=== PATIENT | male | born 1950 | race Caucasian/White ===

== ENCOUNTER → 2018-07-22 | Outpatient (CLI) | payer MEDICARE, OTHER ==
--- NOTE | 2018-07-22 15:49 | 2DMMODE ---
[place] [address] 2 D/M-MODE ECHOCARDIOGRAM Name: JOCYODALYS Felecia Room: [facility]#: [id number] Admission: 07/22/18 Attend Phys: Evelia Thompson Discharge: Date of : 46 Date of Service: 07/22/18 1549 Report #: [id number] THIS REPORT FOR: //name// APPROVED REPORT Study performed: 07/22/2018 13:54:45 EXAM: Comprehensive 2D, Doppler, and color-flow Echocardiogram Patient Location: Out-Patient Status: routine BSA: 1.74 HR: 70 bpm BP: 123/65 mmHg Rhythm: NSR Other Information Study Quality: Good Indications CAD Leg pain 2D Dimensions IVSd: 7.98 (7-11mm) LVOT Diam: 20.94 (18-24mm) LVDd: 49.95 mm PWd: 9.10 (7-11mm) Ascending Ao: 30.37 (22-36mm) LVDs: 40.26 (25-40mm) Aortic Root: 33.15 mm Volumes Left Atrial Volume (Systole) LA ESV Index: 30.40 mL/m2 Aortic Valve AoV Peak Rodo.: 1.02 m/s AO Peak Gr.: 4.15 mmHg LVOT Max P.04 mmHg AO Mean Gr.: 2.55 mmHg LVOT Mean P.97 mmHg LVOT Max V: 0.71 m/s AO V2 VTI: 22.91 cm LVOT Mean V: 0.45 m/s YUE (VTI): 2.47 cm2 LVOT V1 VTI: 16.42 cm AI Overton: 2.44 m/s2 AI PHT: 482.38 [place] [address] 2 D/M-MODE ECHOCARDIOGRAM Name: ODALYS SANDRA Room: [facility]#: [id number] Admission: 07/22/18 Attend Phys: Evelia Thompson Discharge: Date of : 46 Date of Service: 07/22/18 1549 Report #: [id number] E/A Ratio: 0.93 MV Decel. Time: 192.69 ms MV E Max Rodo.: 0.65 m/s MV PHT: 55.88 ms MVA (PHT): 3.94 cm2 TDI E/Lateral E': 7.22 E/Medial E': 6.50 Medial E' Rodo.: 0.10 m/s Lateral E' Rodo.: 0.09 m/s Pulmonary Valve PV Peak Rood.: 0.94 m/s PV Peak Gr.: 3.52 mmHg Left Ventricle The left ventricle is normal size. There is global hypokinesis of the left ventricle. There is normal left ventricular wall thickness. Left ventricular systolic function is mildly decreased. LVEF is 35-40%. The left ventricular diastolic function is normal. Right Ventricle The right ventricle is normal size. The right ventricular systolic function is normal. Atria Left atrium is mildly dilated. The right atrium size is normal. Aortic Valve Mild aortic valve sclerosis. mild to Moderate aortic regurgitation. There is no aortic valvular stenosis. Mitral Valve The mitral valve is normal in structure. mild mitral regurgitation. No evidence of mitral valve stenosis. Tricuspid Valve The tricuspid valve is normal in structure. Unable to assess PA pressure. Trace tricuspid regurgitation. Pulmonic Valve The pulmonary valve is normal in structure. Trace pulmonic regurgitation. Great Vessels The aortic root is normal in size. IVC [place] [address] 2 D/M-MODE ECHOCARDIOGRAM Name: ODALYS SANDRA Room: [facility]#: [id number] Admission: 07/22/18 Attend Phys: Evelia Thompson Discharge: Date of : 46 Date of Service: 07/22/18 1549 Report #: [id number] collapses >50% with inspiration. Pericardium There is no pericardial effusion. <Conclusion> LVEF is 35-40%. There is global hypokinesis of the left ventricle. Left atrium is mildly dilated. There is no aortic valvular stenosis Trace tricuspid regurgitation. mild to moderate aortic regurgitation. mild mitral regurgitation. <ELECTRONICALLY SIGNED> By: Patrick Pablo MD, FACC 07/22/18 1549 1549 1549 Patrick Pablo MD, FAC /INF
== END ==
LOC: M.ULTRA 07-02 08:01
DX: I08.0 Rheumatic disorders of both mitral and aortic valves (principal); G45.9 Transient cerebral ischemic attack, unspecified; M79.604 Pain in right leg; I73.9 Peripheral vascular disease, unspecified; Z88.8 Allergy status to other drugs, medicaments and biological substances

== ENCOUNTER 2018-08-02 11:48 | Emergency (ER) | payer MEDICARE, OTHER ==
[~2018-08-02] VITALS: Ht 170.2 cm; Wt 63.5 kg
[2018-08-02 11:55] VITALS: BP 138/80
[2018-08-02] MEDS ORDERED: DOXYCYCLINE 10100 MG PO ×2 (12:41)
== END 2018-08-02 12:48 | disposition home or self-care (01) ==
LOC: M.ERS 11:48
DX: S81.832A Puncture wound without foreign body, left lower leg, initial encounter (principal); E11.9 Type 2 diabetes mellitus without complications; F17.210 Nicotine dependence, cigarettes, uncomplicated; W57.XXXA Bitten or stung by nonvenomous insect and other nonvenomous arthropods, initial encounter; Y93.89 Activity, other specified; Y92.89 Other specified places as the place of occurrence of the external cause; Y99.8 Other external cause status

== ENCOUNTER → 2019-10-07 | Outpatient (CLI) | payer MEDICARE, OTHER ==
[~2019-10-07] MED LIST: DOXYCYCLINE 10100 MG PO
--- NOTE | 2019-10-07 11:06 | 2DMMODE ---
[place] [address] 2 D/M-MODE ECHOCARDIOGRAM Name: ODALYS SANDRA Room: [facility]#: [id number] Admission: 10/07/19 Attend Phys: Chevy Hill MD Discharge: Date of : 46 Date of Service: 10/07/19 1106 Report #: [id number] THIS REPORT FOR: cc: John Pierre MD, Jeffery F. MD Blick, David R. MD [facility] ~ APPROVED REPORT Study performed: 10/07/2019 08:53:23 EXAM: Comprehensive 2D, Doppler, and color-flow Echocardiogram Patient Location: Out-Patient BSA: 1.67 HR: 73 bpm BP: 123/65 mmHg Other Information Study Quality: Good Indications Cardiomyopathy 2D Dimensions IVSd: 9.73 (7-11mm) LVOT Diam: 20.46 (18-24mm) LVDd: 48.52 mm PWd: 7.16 (7-11mm) Ascending Ao: 25.51 (22-36mm) LVDs: 29.35 (25-40mm) Aortic Root: 23.44 mm Volumes Left Atrial Volume (Systole) LA ESV Index: 20.20 mL/m2 Aortic Valve AoV Peak Rodo.: 0.95 m/s AO Peak Gr.: 3.64 mmHg LVOT Max P.69 mmHg AO Mean Gr.: 2.09 mmHg LVOT Mean P.82 mmHg LVOT Max V: 0.65 m/s AO V2 VTI: 19.84 cm LVOT Mean V: 0.42 m/s YUE (VTI): 2.52 cm2 LVOT V1 VTI: 15.19 cm AI Boyle: 2.09 m/s2 AI PHT: 558.33 [place] [address] 2 D/M-MODE ECHOCARDIOGRAM Name: ODALYS SANDRA Room: [facility]#: [id number] Admission: 10/07/19 Attend Phys: Chevy Hill MD Discharge: Date of : 46 Date of Service: 10/07/19 1106 Report #: [id number] Mitral Valve E/A Ratio: 1.18 MV Decel. Time: 174.04 ms MV E Max Rodo.: 0.67 m/s MV PHT: 50.47 ms MVA (PHT): 4.36 cm2 TDI E/Lateral E': 6.09 E/Medial E': 9.57 Medial E' Rodo.: 0.07 m/s Lateral E' Rodo.: 0.11 m/s Pulmonary Valve PV Peak Rodo.: 0.71 m/s PV Peak Gr.: 2.03 mmHg Left Ventricle Left ventricle is mildly dilated. There is global hypokinesis of the left ventricle. There is normal left ventricular wall thickness. Left ventricular systolic function is mildly decreased. LVEF is 30-35%. The left ventricular diastolic function is normal. Right Ventricle The right ventricle is normal size. The right ventricular systolic function is normal. Atria The left atrium size is normal. The right atrium size is normal. Aortic Valve Mild aortic valve sclerosis. Mild aortic regurgitation. There is no aortic valvular stenosis. Mitral Valve The mitral valve is normal in structure. There is no mitral valve regurgitation noted. No evidence of mitral valve stenosis. Tricuspid Valve The tricuspid valve is normal in structure. There is no tricuspid valve regurgitation noted. Pulmonic Valve The pulmonary valve is normal in structure. Mild pulmonic regurgitation. [place] [address] 2 D/M-MODE ECHOCARDIOGRAM Name: ODALYS SANDRA Room: [facility]#: [id number] Admission: 10/07/19 Attend Phys: Chevy Hill MD Discharge: Date of : 46 Date of Service: 10/07/19 1106 Report #: [id number] The aortic root is normal in size. IVC is normal in size and collapses >50% with inspiration. Pericardium There is no pericardial effusion. <Conclusion> Left ventricle is mildly dilated. LVEF is 30-35%. Mild aortic valve sclerosis. Mild aortic regurgitation. <ELECTRONICALLY SIGNED> By: Chevy Hill MD, FACC 10/07/19 1106 05 05 Chevy Hill MD, FAC /INF
== END ==
LOC: M.ULTRA 07-09 07:55 → M.CRD 08:30 → M.ULTRA 09:00 → M.CRD 10:00
PROVIDERS: ATTEND Internal Medicine Cardiovascular Disease
DX: I08.8 Other rheumatic multiple valve diseases (principal); I25.5 Ischemic cardiomyopathy; I65.23 Occlusion and stenosis of bilateral carotid arteries